=== PATIENT | female | born 1970 | race African-American/Black ===

== ENCOUNTER 2019-10-13 14:10 | Inpatient (IN) | payer OTHER ==
--- NOTE | 2019-10-13 14:37 | BHS.RME ---
Substance Use & Tx History - Substance Use History Cocaine (Crack) Substance amount: $100 Frequency of use: Daily Substance route: Smoking Date of Last Use: 10/10/19 Physical/Psych/Mental Status - Behavior General Behavior: Increased activity (restlessness, agitation) Eye Contact: Decreased - Cooperativeness Cooperativeness: Cooperative - Thinking Thought Processes: Loosened Thought content: Future oriented - Physical Health Problems Is patient presently having any pain?: No Does patient presently have any injuries (include location): No Does patient currently have a fever: No Is patient : No
--- NOTE | 2019-10-13 16:47 | HP ---
CIWA Score - Admission Criteria [facility]ASAS Guidelines: Admission for Medically Managed Detox: Requires at least one of the followin. CIWA greater than 12 2. Seizures within the past 24 hours 3. Delirium tremens within the past 24 hours 4. Hallucinations within the past 24 hours 5. Acute intervention needed for co occurring medical disorder 6. Acute intervention needed for co occurring psychiatric disorder 7. Severe withdrawal that cannot be handled at a lower level of care (continued vomiting, continued diarrhea, abnormal vital signs) requiring intravenous medication and/or fluids 8. Admitting History and Physical - Past Medical History ...LMP: 11/07/02 - Smoking History Smoking history: Current every day smoker Have you smoked in the past 12 months: Yes Aproximately how many cigarettes per day: 20 Admission ROS [facility] Chief Complaint: seeking cocaine txment Allergies/Adverse Reactions: Allergies Allergy/AdvReac Type Severity Reaction Status Date / Time No Known Allergies Allergy Verified 10/22/11 18:46 History of Present Illness: HERE FOR REB. CLIENT REPORTS HER DRUG OF CHOICE COCAINE. USING DAILY VIA SMOKING.LAST USE 1 DAY AGO. CLIENT IS SELF REFERRED. KNOWN TO PROGRAM. LAST HERE 2011. CLIENT DENIES ANY INPATIENT TXMENT SINCE. SHE DENIES ANY SIGNIFICANT PERIOD OF CLEAN TIME. DENIES IVDU, BLACKOUTS, SZ D/O, AVH. SHE ALL DENIES ALL SUBSTANCE OF ABUSE TO INCLUDE ALCOHOL. HOMELESS, SSI, DENIES LEGALS Exam Limitations: No Limitations - Ebola screening Have you traveled outside of the country in the last 21 days: No Have you had contact with anyone from an Ebola affected area: No Have you been sick,other than usual withdrawal symptoms: No Do you have a fever: No - Review of Systems Constitutional: Changes in sleep EENT: reports: Dental Problems (MISSING TEETH) Respiratory: reports: No Symptoms reported Cardiac: reports: No Symptoms Reported GI: reports: Constipated, Poor Fluid Intake : reports: No Symptoms Reported Musculoskeletal: reports: Back Pain (CHRONIC) Integumentary: reports: Dryness Neuro: reports: No Symptoms reported Endocrine: reports: No Symptoms Reported Hematology: reports: No Symptoms Reported Psychiatric: reports: Anxious, Depressed (DENIES SI/HI), Disorientated (TO DATE) Other Systems: Reviewed and Negative Patient History - Patient Medical History Hx Asthma: Yes (Pt is on MDI for asthma.) Hx Chronic Obstructive Pulmonary Disease (COPD): No Hx Cardiac Disorders: Yes (hx of heart murmur) Hx Hypertension: No Hx Seizures: No Hx Diabetes: No Hx Gastrointestinal Disorders: No Hx Genitourinary Disorders: No Hx Sexually Transmitted Disorders: Yes (HIV) Hx Renal Disease (ESRD): No Hx Human Immunodeficiency Virus (HIV): Yes (AIDS NO MEDS. DX 1999) Hx Depression: Yes Hx Suicide Attempt: No Hx Schizophrenia: No - Patient Surgical History Past Surgical History: Yes Hx Neurologic Surgery: No Hx Cataract Extraction: No Hx Cardiac Surgery: No Hx Lung Surgery: No Hx Breast Surgery: No Hx Breast Biopsy: No Hx Abdominal Surgery: No Hx Appendectomy: No Hx Cholecystectomy: No Hx Genitourinary Surgery: No Hx Section: No Hx Orthopedic Surgery: No Other Surgical History: Total hysterectomy in 2002 Anesthesia Reaction: No - PPD History Previous Implant?: Yes Documented Results: Negative w/proof Implanted On Prior [facility] Admission?: Yes Date: 08/20/11 Results: omm PPD to be Administered?: Yes - Reproductive History Patient is a Female of Child Bearing Age (11 -55 yrs old): Yes LMP comment: [facility] 2002 Patient : No (NEG HCG) - Smoking Cessation Smoking history: Current every day smoker Have you smoked in the past 12 months: Yes Aproximately how many cigarettes per day: 2 Cigars Per Day: 0 Hx Chewing Tobacco Use: No Initiated information on smoking cessation: Yes 'Breaking Loose' booklet given: 10/13/19 - Substance & Tx. History Hx Alcohol Use: No Hx Substance Use: Yes Substance Use Type: Cocaine Hx Substance Use Treatment: Yes ([facility]) - Substances abused Cocaine Substance route: Smoking Frequency: Daily Amount used: 200 DOLLARS Age of first use: 17 Date of last use: 10/12/19 Admission Physical Exam [facility] - Physical General Appearance: Yes: Disheveled (UNKEPT), Irritable, Anxious HEENTM: Yes: EOMI, Normocephalic, Normal Voice, BRIANNE, Other (ORAL THRUSH, EDENTULOUS) Respiratory: Yes: Chest Non-Tender, Lungs Clear, Normal Breath Sounds, No Respi ratory Distress, No Accessory Muscle Use Neck: Yes: No masses,lesions,Nodules, Supple, Trachea in good position Breast: Yes: Breasts Symetrical Cardiology: Yes: Regular Rhythm, Regular Rate, S1, S2 Abdominal: Yes: Normal Bowel Sounds, Non Tender, Soft Genitourinary: Yes: Within Normal Limits (NO C/ OFFERED) Back: Yes: Normal Inspection Musculoskeletal: Yes: full range of Motion, Gait Steady Extremities: Yes: Normal Range of Motion, Non-Tender, Other (LEFT HAND 5 TH DIGIT CONTRACTURE) Neurological: Yes: Fully Oriented, Alert, Motor Strength 5/5, Depressed Affect Integumentary: Yes: Dry (EXTREMELY DRY FLAKY SKIN), Warm Lymphatic: Yes: Within Normal Limits - Diagnostic (1) Cocaine dependence, uncomplicated Current Visit: Yes Status: Acute (2) AIDS Current Visit: Yes Status: Acute (3) Asthma Current Visit: Yes Status: Acute (4) Homeless Current Visit: Yes Status: Acute (5) Depressed affect Current Visit: Yes Status: Acute (6) Dry skin dermatitis Current Visit: Yes Status: Acute (7) Substance-induced anxiety disorder Current Visit: Yes Status: Acute (8) At risk for dehydration due to poor fluid intake Current Visit: Yes Status: Acute (9) Nicotine dependence Current Visit: Yes Status: Acute (10) Candidiasis of mouth Current Visit: Yes Status: Acute (11) Cachexia associated with AIDS Current Visit: Yes Status: Chronic Cleared for Admission BHS - Detox or Rehab Detox Regimen/Protocol: Not Applicable Claeared for Rehab Admission: No Breathalyzer - Breathalyzer Breathalyzer: 0 Urine Drug Screen - Test Device Lot number: [id number] Expiration date: 07/09/21 - Control Is test valid?: Yes - Results Drug screen NEGATIVE: No Urine drug screen results: SEVERINO-Cocaine Inpatient Rehab Admission - Rehab Decision to Admit Inpatient rehab admission?: Yes - Initial Determination Are CD services needed?: Yes Free of communicable disease: No Not in need of hospitalization: Yes - Rehab Admission Criteria Previous failed treatment: Yes Poor recovery environment: Yes Comorbidities: Yes Lacks judgement: No Patient is meeting Inpatient Rehab admission criteria:: Yes
[2019-10-13] MEDS ORDERED: IBUPROFEN 400 MG TABLET (FP) PO PRN (16:51)
[2019-10-13] MEDS ORDERED: hydrOXYzine PAMOATE 25 MG CAPSULE (FP) PO PRN (16:51)
[2019-10-13] MEDS ORDERED: LOPERAMIDE HCL 2 MG CAPSULE PO PRN (16:51)
[2019-10-13] MEDS ORDERED: ACETAMINOPHEN 325 MG TABLET (FP) PO PRN (16:51)
[2019-10-13] MEDS ORDERED: P-EPHED 60MG/TRIPROLIDI 2.5MG TABLET PO PRN (16:51)
[2019-10-13] MEDS ORDERED: guaiFENesin 200 MG/10 ML 10 ML UNIT-DOSE CUPS PO PRN (16:51)
[2019-10-13] MEDS ORDERED: MAG HYDROX/AL HYDROX/SIMETH 30 ML UNIT-DOSE CUP PO PRN (16:51)
[2019-10-13] MEDS ORDERED: MAGNESIUM CITRATE 300 ML BOTTLE PO PRN (16:51)
[2019-10-13] MEDS ORDERED: MAGNESIUM HYDROX 2400MG/30ML ORAL SUSPENSION 30 ML CUP PO PRN (16:51)
[2019-10-13] MEDS ORDERED: NICOTINE POLACRILEX 2 MG GUM BC PRN (16:51)
[2019-10-13 17:14] VITALS: BMI 16.1
[2019-10-13] MEDS ORDERED: TUBERCULIN PPD 5 TU/0.1ML VIAL ID ONE (17:44)
[2019-10-13] MEDS: NYSTATIN 500,000 UNITS/5 ML SUSPENSION PO SCH ×2 (18:04→18:40)
[2019-10-13] MEDS: THIAMINE HCL 100 MG TABLET (FP) PO SCH (21:43)
[2019-10-13] MEDS: MELATONIN 5 MG TABLETS PO PRN (21:43)
[2019-10-13] MEDS ORDERED: MELATONIN 5 MG TABLETS PO SCH (22:00)
[2019-10-14] MEDS: NYSTATIN 500,000 UNITS/5 ML SUSPENSION PO SCH ×5 (00:30→23:04)
[2019-10-14] MEDS: PRENATAL VITAMINS W/ FOLIC ACID TABLET (FP) PO SCH (09:12)
[2019-10-14] MEDS: NICOTINE 7 MG/24 HOURS TOPICAL PATCH TD SCH (09:12)
--- NOTE | 2019-10-14 10:57 | EKG ---
Test Reason : Blood Pressure : / mmHG Vent. Rate : 059 BPM Atrial Rate : 059 BPM P-R Int : 150 ms QRS Dur : 088 ms QT Int : 400 ms P-R-T Axes : 070 -53 045 degrees QTc Int : 396 ms SINUS BRADYCARDIA LEFT ANTERIOR FASCICULAR BLOCK NONSPECIFIC T WAVE ABNORMALITY ABNORMAL ECG NO PREVIOUS ECGS AVAILABLE Confirmed by JASSON ROMO MD ([id number]) on 10/14/2019 10:57:18 AM Referred By: DEJUAN Confirmed By:JASSON ROMO MD
[2019-10-14 15:29] LABS: HEMOGLOBIN 10.9 GM/dL (10.7-15.3); MCH 28.5 pg (25.7-33.7); MCHC 32.9 g/dl (32.0-36.0); MEAN CELL VOLUME 86.6 fl (80-96); MEAN PLT VOLUME 8.4 fl (7.5-11.1); PLATELET COUNT 239 K/MM3 (134-434); RBC 3.81 M/mm3 (3.60-5.2); RDW 16.7 % (11.6-15.6); WHITE BLOOD COUNT 3.4 K/mm3 (4.0-10.0)
[2019-10-14 15:49] LABS: ALBUMIN 2.8 g/dl (3.4-5.0); BILIRUBIN,TOTAL 0.3 mg/dL (0.2-1); BLOOD UREA NITROGEN 12.7 mg/dL (7-18); CALCIUM 8.2 mg/dL (8.5-10.1); CREATININE 1.1 mg/dL (0.55-1.3); POTASSIUM 3.9 mmol/L (3.5-5.1); TOT PROT 6.5 g/dl (6.4-8.2)
[2019-10-14 17:56] LABS: URINE APPEARANCE CLOUDY; URINE BILIRUBIN NEGATIVE (NEGATIVE); URINE COLOR YELLOW; URINE GLUCOSE (UA) NEGATIVE (NEGATIVE); URINE KETONE NEGATIVE (NEGATIVE); URINE LEUK ESTERASE NEGATIVE (NEGATIVE); URINE NITRITE NEGATIVE (NEGATIVE); URINE PROTEIN NEGATIVE (NEGATIVE)
[2019-10-14] MEDS: MELATONIN 5 MG TABLETS PO PRN (21:39)
[2019-10-14] MEDS: THIAMINE HCL 100 MG TABLET (FP) PO SCH (21:39)
[2019-10-15] MEDS: NYSTATIN 500,000 UNITS/5 ML SUSPENSION PO SCH ×3 (07:32→19:08)
[2019-10-15] MEDS ORDERED: ALBUTEROL SO4 HFA INHALER IH PRN (07:37)
[2019-10-15] MEDS: PRENATAL VITAMINS W/ FOLIC ACID TABLET (FP) PO SCH (09:23)
[2019-10-15] MEDS: NICOTINE 7 MG/24 HOURS TOPICAL PATCH TD SCH (09:23)
--- NOTE | 2019-10-15 15:55 | PN ---
[facility] Progress Note Note: Patient is referred for fever and complaints of chest discomfort. Patient reports pain and fever started this afternoon. She has h/o asthma, HIV AIDS, not on medication, currently being treated for oral thrush. She reports chest pain is more to the bone. She denies cough, SOB, dyspnea, chills, palpitation PE Vital Signs Temperature 102.9 F H 10/15/19 15:29 Pulse Rate 90 10/15/19 15:29 Respiratory Rate 19 10/15/19 15:29 Blood Pressure 105/76 10/15/19 15:29 O2 Sat by Pulse Oximetry (%) Vital Signs Temperature 99 F 10/15/19 15:53 Pulse Rate 83 10/15/19 15:53 Respiratory Rate 18 10/15/19 15:53 Blood Pressure 103/68 10/15/19 15:53 O2 Sat by Pulse Oximetry (%) General Appearance: A&Ox3, cachetic with temporal wasting Chest: Lungs clear, no wheezing, decreased in the base, pain elicited to the anterior chest wall CVS: S1S2, RRR Abdomen: Soft, NT, ND, no guarding A/P Patient is a 49 year old woman who presents with 1 episode of fever, unknown etiology. Repeat temperature reduced to 99* following administration of tylenol 650mg. Monitoring will continue.
--- NOTE | 2019-10-15 17:03 | CONSULT ---
[facility] Psychiatric Consult - Data Date of interview: 10/15/19 Admission source: [facility] Identifying data: Revisit to [facility] and direct admission to [address], from the community, for this 49 y/o AA female seeking rehabilitation treatment to address ALEENA issues (cocaine, nicotine) co-morbid with schizophrenia + insomnia. Patient is single, a motehr of four, homeless, unemployed and supported on undisclosed means (patient refuses to reveal her support network). Substance Abuse History: Discussed with the patient. ALEENA as follows : Smoking history: Current every day smoker. Have you smoked in the past 12 months: Yes. Aproximately how many cigarettes per day: 2. Cigars Per Day: 0. Hx Chewing Tobacco Use: No. Initiated information on smoking cessation: Yes. 'Breaking Loose' booklet given: 10/13/19. - Substance & Tx. History. Hx Alcohol Use: No. Hx Substance Use: Yes. Substance Use Type: Cocaine. Hx Substance Use Treatment: Yes ([facility]). - Substances abused. Cocaine. Substance route: Smoking. Frequency: Daily. Amount used: 200 DOLLARS. Age of first use: 17. Date of last use: 10/12/19 Medical History: Medical history is remarkable for cachexia, HIV since 1999/AIDS (non-compliant with ART medications), bronchial asthma and antecedent of total hysterectomy (2002). Psychiatric History: Patient is a marginally cooperative historian. She admits to " some " psychiatric hospitalizations but recalls only " the one at [facility] ". Diagnosed with schizophrenia (self-report). Patient states that her psychiatric issues started between 35-40 years of age. Medicated with seroquel 200 mg/hs. Ms Christine denies having a mental health care provider. Gets refills from various sources (CPEP settings, primary care providers). Patient denies history of suicide attempts. Physical/Sexual Abuse/Trauma History: Patient declines to discuss this domain. Additional Comment: Urine drug screen results: SEVERINO-Cocaine. Noted. Mental Status Exam - Mental Status Exam Alert and Oriented to: Time, Place, Person Cognitive Function: Good Patient Appearance: Unkempt, Disheveled (tall and frail habitus, cachexic) Mood: Suspicious, Irritable Affect: Normal Range, Blunted Patient Behavior: Fatigued, Guarded, Cooperative (marginally cooperative) Speech Pattern: Clear Voice Loudness: Normal Thought Process: Goal Oriented Thought Disorder: Bizarre Hallucinations: Denies Suicidal Ideation: Denies Homicidal Ideation: Denies Insight/Judgement: Poor Sleep: Poorly, Difficulty falling asleep (as per self-report but according to nursing progress notes, the patient is observed sleeping well at night) Appetite: Poor, Weight loss Gait/Station: Normal Psychiatric Findings - Problem List ([place] 1, 2,3) (1) Cocaine dependence, uncomplicated Current Visit: Yes Status: Chronic (2) Nicotine dependence Current Visit: Yes Status: Chronic (3) Substance induced mood disorder Current Visit: Yes Status: Chronic (4) Schizophrenia Current Visit: Yes Status: Chronic Qualifiers: Schizophrenia type: paranoid schizophrenia Qualified Code(s): F20.0 - Paranoid schizophrenia (5) Insomnia Current Visit: Yes Status: Chronic - Initial Treatment Plan Initial Treatment Plan: Psychoeducation. Sleep hygiene. Support. Group therapy. Recreational therapy. Douper attempted to verify seroquel dose by calling [facility] at [phone] : no response. Will resume seroquel at 50 mg po hs and observe response. Psychiatry-Liaison will follow for titration as needed (on request). Side effects/benefits discussed with the patient. Ms Christine gave consent (verbal) to MD. [place]ond.
[2019-10-15] MEDS: MELATONIN 5 MG TABLETS PO PRN (21:09)
[2019-10-15] MEDS: THIAMINE HCL 100 MG TABLET (FP) PO SCH (21:09)
[2019-10-15] MEDS ORDERED: QUEtiapine FUMARATE 50 MG TABLET PO SCH (22:00)
[2019-10-15 22:52] VITALS: BP 86/55; PULSE 108; TEMP 100.4
--- NOTE | 2019-10-15 23:00 | PN ---
[facility] Progress Note Note: Vital Signs - 24 hr 10/15/19 10/15/19 10/15/19 00:23 03:28 06:35 Temperature 99.1 F Pulse Rate 78 Respiratory 16 16 16 Rate Blood Pressure 103/73 10/15/19 10/15/19 10/15/19 15:29 15:53 19:07 Temperature 102.9 F H 99 F 98.8 F Pulse Rate 90 83 79 Respiratory 19 18 18 Rate Blood Pressure 105/76 103/68 98/64 10/15/19 21:45 Temperature 100.4 F H Pulse Rate 108 H Respiratory 20 Rate Blood Pressure 86/55 L Laboratory Tests 10/13/19 10/14/19 10/14/19 16:26 08:30 08:30 WBC 3.4 L RBC 3.81 Hgb 10.9 Hct 33.0 MCV 86.6 MCH 28.5 MCHC 32.9 RDW 16.7 H Plt Count 239 D MPV 8.4 Sodium 143 Potassium 3.9 Chloride 110 H Carbon Dioxide 29 Anion Gap 5 L BUN 12.7 Creatinine 1.1 Est GFR (CKD-EPI)AfAm 68.27 Est GFR (CKD-EPI)NonAf 58.91 Random Glucose 70 L Calcium 8.2 L Total Bilirubin 0.3 AST 42 H ALT 26 Alkaline Phosphatase 59 Total Protein 6.5 Albumin 2.8 L Urine Color Urine Appearance Urine pH Ur Specific [place] Urine Protein Urine Glucose (UA) Urine Ketones Urine Blood Urine Nitrite Urine Bilirubin Urine Urobilinogen Ur Leukocyte Esterase POC Urine HCG, Qual Negative RPR Titer Hep C Ab Diagnostic 10/14/19 10/14/19 10/14/19 08:30 13:00 17:00 WBC RBC Hgb Hct MCV MCH MCHC RDW Plt Count MPV Sodium Potassium Chloride Carbon Dioxide Anion Gap BUN Creatinine Est GFR (CKD-EPI)AfAm Est GFR (CKD-EPI)NonAf Random Glucose Calcium Total Bilirubin AST ALT Alkaline Phosphatase Total Protein Albumin Urine Color Yellow Urine Appearance Cloudy Urine pH 7.0 Ur Specific [place] 1.026 Urine Protein Negative Urine Glucose (UA) Negative Urine Ketones Negative Urine Blood Negative Urine Nitrite Negative Urine Bilirubin Negative Urine Urobilinogen 1.0 Ur Leukocyte Esterase Negative POC Urine HCG, Qual RPR Titer Nonreactive Hep C Ab Diagnostic <0.1 CLIENT REEVALUATED FOR FEVER. A/OX 3 "I FEEL BETTER DOC, DENIES COUGH CV- TACHY LUNGS- CTAB CASE D/W DR. DE OLIVEIRA. WILL TRANSFER OUT FOR FEVER 2/2 ADVANCED AIDS, THRUSH. DENIES COUGH. INTERMITTENT SOB DUE TO ASTHMA/GAR. CLIENT IS NOT ON ANTIVIRALS
[2019-10-16] MEDS: NYSTATIN 500,000 UNITS/5 ML SUSPENSION PO SCH ×2 (00:18→07:19)
== END 2019-10-15 23:50 | disposition short-term general hospital (02) | DRG 772 ==
LOC: YASAS 14:10 → Y3E 16:47
PROVIDERS: ADMIT Allergy & Immunology; ATTEND Allergy & Immunology
PROC: HZ42ZZZ Group Counseling for Substance Abuse Treatment, Cognitive-Behavioral (ICD-10-PCS; principal; 2019-10-13)
DX: F14.20 Cocaine dependence, uncomplicated (principal); F17.210 Nicotine dependence, cigarettes, uncomplicated; F20.9 Schizophrenia, unspecified; F19.24 Other psychoactive substance dependence with psychoactive substance-induced mood disorder; B20 Human immunodeficiency virus [HIV] disease; B37.0 Candidal stomatitis; R64 Cachexia; Z68.1 Body mass index [BMI] 19.9 or less, adult; G47.00 Insomnia, unspecified; J45.909 Unspecified asthma, uncomplicated; R45.89 Other symptoms and signs involving emotional state; R50.9 Fever, unspecified; R05 Cough; Z86.79 Personal history of other diseases of the circulatory system; Z56.0 Unemployment, unspecified; Z59.0 Homelessness; Z88.0 Allergy status to penicillin
CPT/HCPCS: 36415; 80053; 81003; 81025; 85027; 86593; 86803; 93005; 93010

== ENCOUNTER 2020-09-28 16:05 | Inpatient (IN) | payer OTHER ==
[2020-09-28 16:56] VITALS: BMI 18.3
[2020-09-28] MEDS ORDERED: MAGNESIUM HYDROX 2400MG/30ML ORAL SUSPENSION 30 ML CUP PO PRN (19:33)
[2020-09-28] MEDS ORDERED: LOPERAMIDE HCL 2 MG CAPSULE PO PRN (19:33)
[2020-09-28] MEDS ORDERED: MAG HYDROX/AL HYDROX/SIMETH 30 ML UNIT-DOSE CUP PO PRN (19:33)
[2020-09-28] MEDS ORDERED: MAGNESIUM CITRATE 300 ML BOTTLE PO PRN (19:33)
[2020-09-28] MEDS ORDERED: guaiFENesin 200 MG/10 ML 10 ML UNIT-DOSE CUPS PO PRN (19:33)
[2020-09-28] MEDS ORDERED: P-EPHED 60MG/TRIPROLIDI 2.5MG TABLET PO PRN (19:33)
[2020-09-28] MEDS ORDERED: ALBUTEROL IH PRN (19:36)
[2020-09-28] MEDS ORDERED: MINERAL OIL/PETROLAT/WATER TOPICAL CREAM 454 GM JAR TP PRN (21:07)
[2020-09-28] MEDS: THIAMINE HCL 100 MG TABLET (FP) PO SCH (21:28)
[2020-09-28] MEDS: QUEtiapine FUMARATE 50 MG TABLET PO ONE (21:29)
[2020-09-28] MEDS: ATORVASTATIN CA 40 MG TABLET (FP) PO SCH (21:36)
[2020-09-28] MEDS ORDERED: valACYclovir HCL 500 MG TABLET (FP) PO ONE (21:49)
[2020-09-28] MEDS ORDERED: PT OWN MED DRAWER 7, Y5N ONE ×2 (21:50→21:57)
[2020-09-29] MEDS ORDERED: PT OWN MED DRAWER 7, Y5N ONE (08:47)
[2020-09-29] MEDS ORDERED: valACYclovir HCL 500 MG TABLET (FP) PO ONE (10:00)
[2020-09-29] MEDS: PRENATAL VITAMINS W/ FOLIC ACID TABLET (FP) PO SCH (10:39)
[2020-09-29] MEDS: NICOTINE 7 MG/24 HOURS TOPICAL PATCH TD SCH (10:39)
[2020-09-29] MEDS: ASPIRIN 81 MG CHEWABLE TABLETS PO SCH (10:39)
[2020-09-29 13:10] LABS: HEMATOCRIT 31.1 % (32.4-45.2); HEMOGLOBIN 10.2 GM/dL (10.7-15.3); MCH 29.9 pg (25.7-33.7); MCHC 32.9 g/dl (32.0-36.0); MEAN CELL VOLUME 90.8 fl (80-96); MEAN PLT VOLUME 8.4 fl (7.5-11.1); PLATELET COUNT 299 K/MM3 (134-434); RBC 3.42 M/mm3 (3.60-5.2); RDW 15.1 % (11.6-15.6); WHITE BLOOD COUNT 3.7 K/mm3 (4.0-10.0)
[2020-09-29 13:13] LABS: POTASSIUM 4.1 mmol/L (3.5-5.1)
[2020-09-29 13:26] LABS: CALCIUM 8.4 mg/dL (8.5-10.1)
[2020-09-29 13:27] LABS: ALBUMIN 3.1 g/dl (3.4-5.0); BLOOD UREA NITROGEN 18.9 mg/dL (7-18)
[2020-09-29 13:30] LABS: CREATININE 0.9 mg/dL (0.55-1.3)
[2020-09-29 13:31] LABS: BILIRUBIN,TOTAL 0.7 mg/dL (0.2-1); TOT PROT 7.3 g/dl (6.4-8.2)
[2020-09-29] MEDS: TIOTROPIUM BROMIDE 2.5 MCG (SPIRIVA) RESPIMAT INHALER IH SCH (13:32)
[2020-09-29] MEDS: QUEtiapine FUMARATE 100 MG TABLET (FP) PO SCH (21:07)
[2020-09-29] MEDS: THIAMINE HCL 100 MG TABLET (FP) PO SCH (21:07)
[2020-09-29] MEDS: ATORVASTATIN CA 40 MG TABLET (FP) PO SCH (21:07)
[2020-09-30] MEDS: TIOTROPIUM BROMIDE 2.5 MCG (SPIRIVA) RESPIMAT INHALER IH SCH (09:26)
[2020-09-30] MEDS: PRENATAL VITAMINS W/ FOLIC ACID TABLET (FP) PO SCH (09:26)
[2020-09-30] MEDS: ASPIRIN 81 MG CHEWABLE TABLETS PO SCH (09:26)
[2020-09-30] MEDS: NICOTINE 7 MG/24 HOURS TOPICAL PATCH TD SCH (09:28)
[2020-09-30] MEDS: ACETAMINOPHEN 325 MG TABLET (FP) PO PRN (15:11)
[2020-09-30] MEDS: IBUPROFEN 400 MG TABLET (FP) PO PRN (16:39)
[2020-09-30] MEDS: ATORVASTATIN CA 40 MG TABLET (FP) PO SCH (21:06)
[2020-09-30] MEDS: THIAMINE HCL 100 MG TABLET (FP) PO SCH (21:06)
[2020-09-30] MEDS: QUEtiapine FUMARATE 100 MG TABLET (FP) PO SCH (21:06)
[2020-10-01] MEDS: NICOTINE 7 MG/24 HOURS TOPICAL PATCH TD SCH (09:34)
[2020-10-01] MEDS: TIOTROPIUM BROMIDE 2.5 MCG (SPIRIVA) RESPIMAT INHALER IH SCH (09:34)
[2020-10-01] MEDS: PRENATAL VITAMINS W/ FOLIC ACID TABLET (FP) PO SCH (09:34)
[2020-10-01] MEDS: ASPIRIN 81 MG CHEWABLE TABLETS PO SCH (09:34)
[2020-10-01] MEDS ORDERED: COLLOIDAL OATMEAL 1 BAR EACH TP PRN (13:06)
[2020-10-01] MEDS: DOCUSATE SODIUM 100 MG CAPSULE (FP) PO SCH ×2 (13:55→21:28)
[2020-10-01] MEDS: hydrOXYzine PAMOATE 25 MG CAPSULE (FP) PO PRN (13:57)
[2020-10-01] MEDS ORDERED: ALBUTEROL SO4 HFA INHALER IH PRN (16:16)
[2020-10-01] MEDS: IBUPROFEN 400 MG TABLET (FP) PO PRN (17:37)
[2020-10-01] MEDS: ATORVASTATIN CA 40 MG TABLET (FP) PO SCH (21:28)
[2020-10-01] MEDS: THIAMINE HCL 100 MG TABLET (FP) PO SCH (21:28)
[2020-10-01] MEDS: QUEtiapine FUMARATE 100 MG TABLET (FP) PO SCH (21:28)
[2020-10-01] MEDS ORDERED: PT OWN MED DRAWER 7, Y5N ONE (21:31)
[2020-10-02] MEDS: DOCUSATE SODIUM 100 MG CAPSULE (FP) PO SCH ×3 (06:15→21:09)
[2020-10-02] MEDS ORDERED: PT OWN MED DRAWER 7, Y5N ONE (09:03)
[2020-10-02] MEDS: PRENATAL VITAMINS W/ FOLIC ACID TABLET (FP) PO SCH (09:29)
[2020-10-02] MEDS: ACETAMINOPHEN 325 MG TABLET (FP) PO PRN (09:29)
[2020-10-02] MEDS: ASPIRIN 81 MG CHEWABLE TABLETS PO SCH (09:30)
[2020-10-02] MEDS: SULFAMETHOXAZOLE/TRIMETHOPRIM 800MG/160MG D.S. TABLET PO SCH (09:30)
[2020-10-02] MEDS: TIOTROPIUM BROMIDE 2.5 MCG (SPIRIVA) RESPIMAT INHALER IH SCH (09:30)
[2020-10-02] MEDS: BICTEGRAV/EMTRICIT/TENOFOV (BIKTARVY) 50-200-25 MG TABLET PO SCH (09:31)
[2020-10-02] MEDS: NICOTINE 7 MG/24 HOURS TOPICAL PATCH TD SCH (09:31)
[2020-10-02] MEDS: BUDESONIDE/FORMETEROL FUMARATE 80/4.5 mcg INHALER IH SCH ×2 (09:32→21:10)
[2020-10-02] MEDS ORDERED: BICTEGRAV/EMTRICIT/TENOFOV (BIKTARVY) 50-200-25 MG TABLET PO SCH (10:00)
[2020-10-02 13:12] LABS: PH,URINE >= 9.0 (5.0-8.0); URINE APPEARANCE CLEAR; URINE BILIRUBIN NEGATIVE (NEGATIVE); URINE COLOR YELLOW; URINE GLUCOSE (UA) NEGATIVE (NEGATIVE); URINE KETONE NEGATIVE (NEGATIVE); URINE LEUK ESTERASE NEGATIVE (NEGATIVE); URINE NITRITE NEGATIVE (NEGATIVE); URINE PROTEIN NEGATIVE (NEGATIVE); URINE UROBILINOGEN 0.2 mg/dL (0.2-1.0)
[2020-10-02] MEDS ORDERED: MASKS NR ONE (19:30)
[2020-10-02] MEDS: hydrOXYzine PAMOATE 25 MG CAPSULE (FP) PO PRN (21:09)
[2020-10-02] MEDS: ATORVASTATIN CA 40 MG TABLET (FP) PO SCH (21:09)
[2020-10-02] MEDS: QUEtiapine FUMARATE 100 MG TABLET (FP) PO SCH (21:09)
[2020-10-02] MEDS: THIAMINE HCL 100 MG TABLET (FP) PO SCH (21:09)
[2020-10-03] MEDS: DOCUSATE SODIUM 100 MG CAPSULE (FP) PO SCH ×3 (06:47→21:06)
[2020-10-03] MEDS: PRENATAL VITAMINS W/ FOLIC ACID TABLET (FP) PO SCH (10:17)
[2020-10-03] MEDS: TIOTROPIUM BROMIDE 2.5 MCG (SPIRIVA) RESPIMAT INHALER IH SCH (10:17)
[2020-10-03] MEDS: BICTEGRAV/EMTRICIT/TENOFOV (BIKTARVY) 50-200-25 MG TABLET PO SCH (10:17)
[2020-10-03] MEDS: hydrOXYzine PAMOATE 25 MG CAPSULE (FP) PO PRN ×2 (10:17→14:49)
[2020-10-03] MEDS: SULFAMETHOXAZOLE/TRIMETHOPRIM 800MG/160MG D.S. TABLET PO SCH (10:17)
[2020-10-03] MEDS: BUDESONIDE/FORMETEROL FUMARATE 80/4.5 mcg INHALER IH SCH ×2 (10:17→21:07)
[2020-10-03] MEDS: ASPIRIN 81 MG CHEWABLE TABLETS PO SCH (10:17)
[2020-10-03] MEDS: NICOTINE 7 MG/24 HOURS TOPICAL PATCH TD SCH (10:18)
[2020-10-03] MEDS: ACETAMINOPHEN 325 MG TABLET (FP) PO PRN (16:42)
[2020-10-03] MEDS: THIAMINE HCL 100 MG TABLET (FP) PO SCH (21:05)
[2020-10-03] MEDS: QUEtiapine FUMARATE 100 MG TABLET (FP) PO SCH (21:06)
[2020-10-03] MEDS: ATORVASTATIN CA 40 MG TABLET (FP) PO SCH (21:06)
[2020-10-04] MEDS: DOCUSATE SODIUM 100 MG CAPSULE (FP) PO SCH ×3 (06:10→21:32)
[2020-10-04] MEDS: ACETAMINOPHEN 325 MG TABLET (FP) PO PRN (06:11)
[2020-10-04] MEDS ORDERED: PT OWN MED DRAWER 7, Y5N ONE (08:49)
[2020-10-04] MEDS: PRENATAL VITAMINS W/ FOLIC ACID TABLET (FP) PO SCH (10:02)
[2020-10-04] MEDS: TIOTROPIUM BROMIDE 2.5 MCG (SPIRIVA) RESPIMAT INHALER IH SCH (10:02)
[2020-10-04] MEDS: BICTEGRAV/EMTRICIT/TENOFOV (BIKTARVY) 50-200-25 MG TABLET PO SCH (10:02)
[2020-10-04] MEDS: ASPIRIN 81 MG CHEWABLE TABLETS PO SCH (10:02)
[2020-10-04] MEDS: SULFAMETHOXAZOLE/TRIMETHOPRIM 800MG/160MG D.S. TABLET PO SCH (10:02)
[2020-10-04] MEDS: NICOTINE 7 MG/24 HOURS TOPICAL PATCH TD SCH (10:03)
[2020-10-04] MEDS: BUDESONIDE/FORMETEROL FUMARATE 80/4.5 mcg INHALER IH SCH ×2 (10:03→21:33)
[2020-10-04] MEDS: IBUPROFEN 400 MG TABLET (FP) PO PRN (13:43)
[2020-10-04] MEDS: QUEtiapine FUMARATE 100 MG TABLET (FP) PO SCH (21:32)
[2020-10-04] MEDS: ATORVASTATIN CA 40 MG TABLET (FP) PO SCH (21:32)
[2020-10-04] MEDS: THIAMINE HCL 100 MG TABLET (FP) PO SCH (21:32)
[2020-10-05] MEDS: DOCUSATE SODIUM 100 MG CAPSULE (FP) PO SCH ×3 (07:02→21:07)
[2020-10-05] MEDS: SULFAMETHOXAZOLE/TRIMETHOPRIM 800MG/160MG D.S. TABLET PO SCH (09:50)
[2020-10-05] MEDS: ASPIRIN 81 MG CHEWABLE TABLETS PO SCH (09:50)
[2020-10-05] MEDS: TIOTROPIUM BROMIDE 2.5 MCG (SPIRIVA) RESPIMAT INHALER IH SCH (09:51)
[2020-10-05] MEDS: BUDESONIDE/FORMETEROL FUMARATE 80/4.5 mcg INHALER IH SCH ×2 (09:51→21:07)
[2020-10-05] MEDS: PRENATAL VITAMINS W/ FOLIC ACID TABLET (FP) PO SCH (09:51)
[2020-10-05] MEDS: NICOTINE 7 MG/24 HOURS TOPICAL PATCH TD SCH (09:52)
[2020-10-05] MEDS: ACETAMINOPHEN 325 MG TABLET (FP) PO PRN ×2 (09:53→21:08)
[2020-10-05] MEDS: BICTEGRAV/EMTRICIT/TENOFOV (BIKTARVY) 50-200-25 MG TABLET PO SCH (10:12)
[2020-10-05] MEDS: THIAMINE HCL 100 MG TABLET (FP) PO SCH (21:06)
[2020-10-05] MEDS: QUEtiapine FUMARATE 100 MG TABLET (FP) PO SCH (21:07)
[2020-10-05] MEDS: ATORVASTATIN CA 40 MG TABLET (FP) PO SCH (21:07)
[2020-10-05] MEDS ORDERED: PT OWN MED DRAWER 7, Y5N ONE (21:46)
[2020-10-06] MEDS: DOCUSATE SODIUM 100 MG CAPSULE (FP) PO SCH ×4 (07:14→21:29)
[2020-10-06] MEDS: ACETAMINOPHEN 325 MG TABLET (FP) PO PRN ×2 (07:59→13:31)
[2020-10-06] MEDS: ASPIRIN 81 MG CHEWABLE TABLETS PO SCH (10:08)
[2020-10-06] MEDS: SULFAMETHOXAZOLE/TRIMETHOPRIM 800MG/160MG D.S. TABLET PO SCH (10:08)
[2020-10-06] MEDS: BICTEGRAV/EMTRICIT/TENOFOV (BIKTARVY) 50-200-25 MG TABLET PO SCH (10:08)
[2020-10-06] MEDS: BUDESONIDE/FORMETEROL FUMARATE 80/4.5 mcg INHALER IH SCH ×2 (10:09→21:30)
[2020-10-06] MEDS: PRENATAL VITAMINS W/ FOLIC ACID TABLET (FP) PO SCH (10:09)
[2020-10-06] MEDS: TIOTROPIUM BROMIDE 2.5 MCG (SPIRIVA) RESPIMAT INHALER IH SCH (10:09)
[2020-10-06] MEDS: NICOTINE 7 MG/24 HOURS TOPICAL PATCH TD SCH (10:09)
[2020-10-06] MEDS: IBUPROFEN 400 MG TABLET (FP) PO PRN (10:11)
[2020-10-06] MEDS ORDERED: PT OWN MED DRAWER 7, Y5N ONE ×2 (10:18→19:29)
[2020-10-06] MEDS: QUEtiapine FUMARATE 50 MG TABLET PO SCH (21:29)
[2020-10-06] MEDS: ATORVASTATIN CA 40 MG TABLET (FP) PO SCH (21:29)
[2020-10-06] MEDS: THIAMINE HCL 100 MG TABLET (FP) PO SCH (21:30)
[2020-10-07] MEDS: DOCUSATE SODIUM 100 MG CAPSULE (FP) PO SCH ×3 (06:37→21:31)
[2020-10-07] MEDS: ACETAMINOPHEN 325 MG TABLET (FP) PO PRN ×2 (07:58→15:55)
[2020-10-07] MEDS: PRENATAL VITAMINS W/ FOLIC ACID TABLET (FP) PO SCH (09:19)
[2020-10-07] MEDS: ASPIRIN 81 MG CHEWABLE TABLETS PO SCH (09:19)
[2020-10-07] MEDS: SULFAMETHOXAZOLE/TRIMETHOPRIM 800MG/160MG D.S. TABLET PO SCH (09:19)
[2020-10-07] MEDS: NICOTINE 7 MG/24 HOURS TOPICAL PATCH TD SCH (09:20)
[2020-10-07] MEDS: BICTEGRAV/EMTRICIT/TENOFOV (BIKTARVY) 50-200-25 MG TABLET PO SCH (09:20)
[2020-10-07] MEDS: BUDESONIDE/FORMETEROL FUMARATE 80/4.5 mcg INHALER IH SCH ×2 (09:21→21:29)
[2020-10-07] MEDS: TIOTROPIUM BROMIDE 2.5 MCG (SPIRIVA) RESPIMAT INHALER IH SCH (09:21)
[2020-10-07] MEDS: THIAMINE HCL 100 MG TABLET (FP) PO SCH (21:29)
[2020-10-07] MEDS: QUEtiapine FUMARATE 50 MG TABLET PO SCH (21:30)
[2020-10-07] MEDS: ATORVASTATIN CA 40 MG TABLET (FP) PO SCH (21:31)
[2020-10-08 07:02] VITALS: TEMP 97.3
[2020-10-08] MEDS: DOCUSATE SODIUM 100 MG CAPSULE (FP) PO SCH ×3 (07:07→21:03)
[2020-10-08] MEDS ORDERED: PT OWN MED DRAWER 7, Y5N ONE (09:03)
[2020-10-08] MEDS: TIOTROPIUM BROMIDE 2.5 MCG (SPIRIVA) RESPIMAT INHALER IH SCH (09:42)
[2020-10-08] MEDS: BICTEGRAV/EMTRICIT/TENOFOV (BIKTARVY) 50-200-25 MG TABLET PO SCH (09:42)
[2020-10-08] MEDS: SULFAMETHOXAZOLE/TRIMETHOPRIM 800MG/160MG D.S. TABLET PO SCH (09:42)
[2020-10-08] MEDS: NICOTINE 7 MG/24 HOURS TOPICAL PATCH TD SCH (09:42)
[2020-10-08] MEDS: PRENATAL VITAMINS W/ FOLIC ACID TABLET (FP) PO SCH (09:42)
[2020-10-08] MEDS: ASPIRIN 81 MG CHEWABLE TABLETS PO SCH (09:42)
[2020-10-08] MEDS: BUDESONIDE/FORMETEROL FUMARATE 80/4.5 mcg INHALER IH SCH ×2 (09:42→21:05)
[2020-10-08] MEDS: ACETAMINOPHEN 325 MG TABLET (FP) PO PRN (09:43)
[2020-10-08] MEDS: IBUPROFEN 400 MG TABLET (FP) PO PRN (11:39)
[2020-10-08] MEDS: THIAMINE HCL 100 MG TABLET (FP) PO SCH (21:03)
[2020-10-08] MEDS: ATORVASTATIN CA 40 MG TABLET (FP) PO SCH (21:03)
[2020-10-08] MEDS: QUEtiapine FUMARATE 50 MG TABLET PO SCH (21:03)
[2020-10-09] MEDS: DOCUSATE SODIUM 100 MG CAPSULE (FP) PO SCH ×3 (06:21→21:28)
[2020-10-09] MEDS: ACETAMINOPHEN 325 MG TABLET (FP) PO PRN ×2 (07:33→11:50)
[2020-10-09] MEDS: ASPIRIN 81 MG CHEWABLE TABLETS PO SCH (10:01)
[2020-10-09] MEDS: SULFAMETHOXAZOLE/TRIMETHOPRIM 800MG/160MG D.S. TABLET PO SCH (10:01)
[2020-10-09] MEDS: PRENATAL VITAMINS W/ FOLIC ACID TABLET (FP) PO SCH (10:01)
[2020-10-09] MEDS: BICTEGRAV/EMTRICIT/TENOFOV (BIKTARVY) 50-200-25 MG TABLET PO SCH (10:01)
[2020-10-09] MEDS: NICOTINE 7 MG/24 HOURS TOPICAL PATCH TD SCH (10:02)
[2020-10-09] MEDS: BUDESONIDE/FORMETEROL FUMARATE 80/4.5 mcg INHALER IH SCH ×2 (10:02→21:28)
[2020-10-09] MEDS: TIOTROPIUM BROMIDE 2.5 MCG (SPIRIVA) RESPIMAT INHALER IH SCH (10:03)
[2020-10-09] MEDS ORDERED: LACTOBACILLUS ACIDOPHILUS 1 TABLET PO ONE (12:46)
[2020-10-09] MEDS: FERROUS SO4 325 MG TABLET (FP) PO SCH (17:08)
[2020-10-09 17:59] LABS: PH,URINE 6.5 (5.0-8.0); URINE APPEARANCE CLEAR; URINE BILIRUBIN NEGATIVE (NEGATIVE); URINE COLOR YELLOW; URINE GLUCOSE (UA) NEGATIVE (NEGATIVE); URINE KETONE TRACE (NEGATIVE); URINE LEUK ESTERASE NEGATIVE (NEGATIVE); URINE NITRITE NEGATIVE (NEGATIVE); URINE PROTEIN NEGATIVE (NEGATIVE)
[2020-10-09] MEDS ORDERED: PT OWN MED DRAWER 7, Y5N ONE (20:29)
[2020-10-09] MEDS: THIAMINE HCL 100 MG TABLET (FP) PO SCH (21:28)
[2020-10-09] MEDS: ATORVASTATIN CA 40 MG TABLET (FP) PO SCH (21:28)
[2020-10-09] MEDS: QUEtiapine FUMARATE 50 MG TABLET PO SCH (21:28)
[2020-10-10] MEDS: DOCUSATE SODIUM 100 MG CAPSULE (FP) PO SCH ×3 (06:28→21:05)
[2020-10-10] MEDS: FERROUS SO4 325 MG TABLET (FP) PO SCH ×2 (07:02→18:39)
[2020-10-10] MEDS: SULFAMETHOXAZOLE/TRIMETHOPRIM 800MG/160MG D.S. TABLET PO SCH (09:48)
[2020-10-10] MEDS: ASPIRIN 81 MG CHEWABLE TABLETS PO SCH (09:48)
[2020-10-10] MEDS: NICOTINE 7 MG/24 HOURS TOPICAL PATCH TD SCH (09:49)
[2020-10-10] MEDS: BICTEGRAV/EMTRICIT/TENOFOV (BIKTARVY) 50-200-25 MG TABLET PO SCH (09:49)
[2020-10-10] MEDS: PRENATAL VITAMINS W/ FOLIC ACID TABLET (FP) PO SCH (09:49)
[2020-10-10] MEDS: LACTOBACILLUS ACIDOPHILUS 1 TABLET PO SCH (09:51)
[2020-10-10] MEDS ORDERED: PT OWN MED DRAWER 7, Y5N ONE (09:51)
[2020-10-10] MEDS: hydrOXYzine PAMOATE 25 MG CAPSULE (FP) PO PRN (09:52)
[2020-10-10] MEDS: ACETAMINOPHEN 325 MG TABLET (FP) PO PRN ×3 (09:52→18:59)
[2020-10-10] MEDS: TIOTROPIUM BROMIDE 2.5 MCG (SPIRIVA) RESPIMAT INHALER IH SCH (09:53)
[2020-10-10] MEDS: BUDESONIDE/FORMETEROL FUMARATE 80/4.5 mcg INHALER IH SCH ×2 (09:53→21:06)
[2020-10-10] MEDS: IBUPROFEN 400 MG TABLET (FP) PO PRN (11:25)
[2020-10-10] MEDS: ATORVASTATIN CA 40 MG TABLET (FP) PO SCH (21:05)
[2020-10-10] MEDS: QUEtiapine FUMARATE 50 MG TABLET PO SCH (21:05)
[2020-10-10] MEDS: THIAMINE HCL 100 MG TABLET (FP) PO SCH (21:05)
[2020-10-11] MEDS: DOCUSATE SODIUM 100 MG CAPSULE (FP) PO SCH ×3 (06:41→21:20)
[2020-10-11] MEDS: FERROUS SO4 325 MG TABLET (FP) PO SCH ×2 (07:40→18:17)
[2020-10-11] MEDS: ACETAMINOPHEN 325 MG TABLET (FP) PO PRN (08:56)
[2020-10-11] MEDS: PRENATAL VITAMINS W/ FOLIC ACID TABLET (FP) PO SCH (09:26)
[2020-10-11] MEDS: LACTOBACILLUS ACIDOPHILUS 1 TABLET PO SCH (09:26)
[2020-10-11] MEDS: SULFAMETHOXAZOLE/TRIMETHOPRIM 800MG/160MG D.S. TABLET PO SCH (09:26)
[2020-10-11] MEDS: ASPIRIN 81 MG CHEWABLE TABLETS PO SCH (09:26)
[2020-10-11] MEDS: BICTEGRAV/EMTRICIT/TENOFOV (BIKTARVY) 50-200-25 MG TABLET PO SCH (09:27)
[2020-10-11] MEDS: TIOTROPIUM BROMIDE 2.5 MCG (SPIRIVA) RESPIMAT INHALER IH SCH (09:27)
[2020-10-11] MEDS: NICOTINE 7 MG/24 HOURS TOPICAL PATCH TD SCH (09:28)
[2020-10-11] MEDS: BUDESONIDE/FORMETEROL FUMARATE 80/4.5 mcg INHALER IH SCH ×2 (09:28→21:21)
[2020-10-11] MEDS ORDERED: PT OWN MED DRAWER 7, Y5N ONE ×2 (10:12→21:22)
[2020-10-11] MEDS: hydrOXYzine PAMOATE 25 MG CAPSULE (FP) PO PRN (11:51)
[2020-10-11] MEDS: ATORVASTATIN CA 40 MG TABLET (FP) PO SCH (21:20)
[2020-10-11] MEDS: THIAMINE HCL 100 MG TABLET (FP) PO SCH (21:21)
[2020-10-11] MEDS: QUEtiapine FUMARATE 50 MG TABLET PO SCH (21:21)
[2020-10-12] MEDS: DOCUSATE SODIUM 100 MG CAPSULE (FP) PO SCH (06:06)
[2020-10-12 06:54] VITALS: BP 106/67; PULSE 69
[2020-10-12] MEDS ORDERED: PT OWN MED DRAWER 7, Y5N ONE (08:00)
[2020-10-12] MEDS: FERROUS SO4 325 MG TABLET (FP) PO SCH (09:06)
[2020-10-12] MEDS: SULFAMETHOXAZOLE/TRIMETHOPRIM 800MG/160MG D.S. TABLET PO SCH (09:06)
[2020-10-12] MEDS: ASPIRIN 81 MG CHEWABLE TABLETS PO SCH (09:06)
[2020-10-12] MEDS: NICOTINE 7 MG/24 HOURS TOPICAL PATCH TD SCH (09:07)
[2020-10-12] MEDS: BUDESONIDE/FORMETEROL FUMARATE 80/4.5 mcg INHALER IH SCH (09:07)
[2020-10-12] MEDS: BICTEGRAV/EMTRICIT/TENOFOV (BIKTARVY) 50-200-25 MG TABLET PO SCH (09:07)
[2020-10-12] MEDS: PRENATAL VITAMINS W/ FOLIC ACID TABLET (FP) PO SCH (09:07)
[2020-10-12] MEDS: LACTOBACILLUS ACIDOPHILUS 1 TABLET PO SCH (09:07)
[2020-10-12] MEDS: TIOTROPIUM BROMIDE 2.5 MCG (SPIRIVA) RESPIMAT INHALER IH SCH (09:08)
== END 2020-10-12 09:13 | disposition home or self-care (01) | DRG 772 ==
LOC: YASAS 16:05 → Y3E 18:41
PROVIDERS: ADMIT Allergy & Immunology; ATTEND Allergy & Immunology
PROC: HZ42ZZZ Group Counseling for Substance Abuse Treatment, Cognitive-Behavioral (ICD-10-PCS; principal; 2020-09-28)
DX: F14.20 Cocaine dependence, uncomplicated (principal); F17.210 Nicotine dependence, cigarettes, uncomplicated; F19.282 Other psychoactive substance dependence with psychoactive substance-induced sleep disorder; F19.280 Other psychoactive substance dependence with psychoactive substance-induced anxiety disorder; F19.24 Other psychoactive substance dependence with psychoactive substance-induced mood disorder; F31.9 Bipolar disorder, unspecified; F25.9 Schizoaffective disorder, unspecified; B20 Human immunodeficiency virus [HIV] disease; A59.01 Trichomonal vulvovaginitis; J45.909 Unspecified asthma, uncomplicated; M41.9 Scoliosis, unspecified; N90.89 Other specified noninflammatory disorders of vulva and perineum; R63.4 Abnormal weight loss; Z68.1 Body mass index [BMI] 19.9 or less, adult; Z88.0 Allergy status to penicillin; Z56.0 Unemployment, unspecified; Z59.0 Homelessness
CPT/HCPCS: 36415; 80053; 81003; 85027; 86593; 86780; 87086; 87491; 87591; 87661; C9803; U0003